=== PATIENT | male | born 1995 | race Caucasian/White ===

== ENCOUNTER 2021-12-26 20:09 | Emergency (ER) | payer BC ==
[~2021-12-26] VITALS: Ht 180.3 cm; Wt 93.4 kg
[2021-12-26 20:14] VITALS: BP_SYST 132
[2021-12-26 20:25] VITALS: BP_SYST 135
--- NOTE | 2021-12-26 20:31 | NUR ---
PT HERE SENT FROM URGENT CARE FOR FURTHER EVNATASHA D/T SYNCOPAL EPISODE. PT STATED THEY DID TB TEST ON HIME AND PER PT AFTER THEY DID THE TEST HE HAD SYNCOPAL EPISODE. PT DENIES FALL/TRAUMA. DENIES DIZZINESS AND HEADACHE. NO LOCAL NEURO NOTED. PMH:DENIES PT AAOX4, NOT IN ANY DISTRESS. PENDING MD DELACRUZ.
--- NOTE | 2021-12-26 23:47 | NUR ---
PT SEEN AND RE EXAMINE BY DR. LIM.
[2021-12-27 00:32] VITALS: BP_SYST 128
--- NOTE | 2021-12-27 00:34 | NUR ---
DC PT HOME AAOX4, NO SOB NOTED AND NOT IN ANY DISTRESS. DC INSTRUCTION WERE GIVEN TO PT ALSO INSTRUCTED TO F/U WITH HIS PCP. HE VERBALIZED UNDERSTANDING
== END 2021-12-27 00:32 | disposition home or self-care (01) ==
LOC: SED 20:09
DX: R55 Syncope and collapse (principal); R42 Dizziness and giddiness; R06.02 Shortness of breath; Z79.899 Other long term (current) drug therapy
CPT/HCPCS: 93005; 99283